=== PATIENT | female | born 1970 | race Caucasian/White ===

== ENCOUNTER 2019-11-28 15:38 | Outpatient (CLI) | payer OTHER, SELFPAY ==
--- NOTE | ~2019-11-28 | MM_ITS ---
EXAMINATION: MM screening sa[facility] BI w wanda HISTORY: Screening mammogram TECHNIQUE: Craniocaudal and mediolateral oblique 3-D tomosynthesis images were obtained and synthetic 2-D images were generated. CAD analysis was submitted and interpreted. COMPARISON: Comparison to multiple prior studies sequentially, with oldest reviewed study dated 08/17. BREAST PARENCHYMAL COMPOSITION: The breasts are heterogeneously dense, which may obscure small masses . FINDINGS: There is no evidence of suspicious mass, calcification, or architectural distortion to sugg est malignancy in either breast. There has been no suspicious interval change. IMPRESSION: 1. No mammographic evidence of malignancy. 2. Recommend routine screening mammography in one year. BI-RADS Category 1: Negative Reviewed, dictated and finalized at location A.
== END 2019-11-28 15:39 | disposition home or self-care (01) ==
PROVIDERS: PCP Family Medicine; Visit Provider Student in an Organized Health Care Education/Training Program
DX: Z12.31 Encounter for screening mammogram for malignant neoplasm of breast (principal)
CPT/HCPCS: 77063; 77067

== ENCOUNTER 2020-12-24 16:52 | Outpatient (CLI) | payer OTHER, SELFPAY ==
--- NOTE | ~2020-12-24 | MM_ITS ---
EXAMINATION: MM screening [facility] BI w wanda HISTORY: Screening mammogram TECHNIQUE: Craniocaudal and mediolateral oblique 3-D tomosynthesis images were obtained and synthetic 2-D images were generated. CAD analysis was submitted and interpreted. COMPARISON: 11/28/2019, 11/18/2018, 11/05/2017 BREAST PARENCHYMAL COMPOSITION: There are scattered areas of fibroglandular density. FINDINGS: There is no evidence of suspicious mass, calcification, or architectural distortion to sugg est malignancy in either breast. There has been no suspicious interval change. IMPRESSION: 1. No mammographic evidence of malignancy. 2. Recommend routine screening mammography in one year. BI-RADS Category 1: Negative Reviewed, dictated and finalized at location A.
== END 2020-12-24 16:53 | disposition home or self-care (01) ==
LOC: ANHIMG 16:54
PROVIDERS: PCP Family Medicine; Visit Provider Student in an Organized Health Care Education/Training Program
DX: Z12.31 Encounter for screening mammogram for malignant neoplasm of breast (principal)
CPT/HCPCS: 77063; 77067

== ENCOUNTER 2021-08-21 01:24 | Day surgery (SDC) | payer OTHER, SELFPAY ==
[2021-08-08 13:17] VITALS: BMI 21.5
--- NOTE | 2021-08-20 14:25 | PM.HPGS ---
History of Present Illness History of Present Illness Consent: Risks, benefits, and alternatives have been discussed and questions answered. Patient agrees to proceed with procedure. Chief complaint: neoplasm screening Narrative: Maggie Clarke is a 51 year old female referred for colon cancer screening. Review of Systems Review of Systems: All systems reviewed & are unremarkable except as noted in HPI and below PMFSH Past Medical History Medical History Acid reflux Acute otitis media (~05/30/04) Anxiety HSV (herpes simplex virus) infection Lipoma (~09/25/11) RUQ and right upper thigh Polyp of colon (~2011) Vaginal delivery x 2 Varicose vein of leg (~2011) Surgical History Surgical History History of vein stripping 2015 S/P excision of lipoma abdomen and right thigh - 2018 Social History Social History Smoking status: Never smoker Second hand tobacco smoke exposure: No Alcohol intake: current Alcohol use details: socially Substance use: never Substance use type: does not use Living arrangements: with family Gender identity (if verbalized by the patient): Female Spiritual care concerns: No Meds Home Medications and Allergies Home Medications Medication Instructions Recorded Confirmed Type evening primrose oil 500 mg capsule 500 mg PO 4-6XD 11/23/19 08/21/21 History dqqbkabe-ruleypnp-pgmxl acid 100 1 tablet PO DAILY 11/23/19 08/21/21 History mcg-caffeine 22.5 mg chewable tablet [place]y's wort 300 mg capsule 300 mg PO DAILY 01/01/20 08/21/21 History ascorbic acid 7.5 mg-vit E 7.5 1 tablet PO DAILY 12/26/20 08/21/21 History unit-biotin 1,250 mcg chewable tablet L norgest/E estradiol-E estrad 1 tablet PO DAILY tablet 04/07/21 08/21/21 History 0.10 mg-20 mcg (84)/10 mcg(7) tabs,3mos Allergies Allergy/AdvReac Type Severity Reaction Status Date / Time No Known Allergies Allergy Verified 08/21/21 06:44 Exam Resp: Auscultation: clear to auscultation bilaterally Cardio: Rate: regular rate Rhythm: regular rhythm GI: GI Palp: Yes Soft to palpation and No Tenderness to palpation present (GI) Assessment and Plan Assessment and plan (1) Colon cancer screening: Code(s): Z12.11 - Encounter for screening for malignant neoplasm of colon Status: Acute Assessment and Plan: Colonoscopy with possible biopsy or polypectomy or cautery or injection of substances.
--- NOTE | 2021-08-20 14:52 | WPDANESEPPF ---
Anes - Initial Pre Proc Eval Procedure: Operation Date: 08/21/21 08:00 Proposed Procedures p Screening Colonoscopy - Emre He MD Date/Time: 08/20/21 14:52 Surgeon: Emre He MD Pre Op Diagnosis: neoplasm screening Patient Data Age: 51 Gender: F Height: 1.78 m Weight: 68.18 kg Allergies Allergy/AdvReac Type Severity Reaction Status Date / Time No Known Allergies Allergy Verified 08/21/21 06:44 Home Medications Medication Instructions Recorded Confirmed Type evening primrose oil 500 mg capsule 500 mg PO 4-6XD 11/23/19 08/21/21 History qzpxtouh-iamxxlmd-zoqve acid 100 1 tablet PO DAILY 11/23/19 08/21/21 History mcg-caffeine 22.5 mg chewable tablet [place]'s wort 300 mg capsule 300 mg PO DAILY 01/01/20 08/21/21 History ascorbic acid 7.5 mg-vit E 7.5 1 tablet PO DAILY 12/26/20 08/21/21 History unit-biotin 1,250 mcg chewable tablet L norgest/E estradiol-E estrad 1 tablet PO DAILY tablet 04/07/21 08/21/21 History 0.10 mg-20 mcg (84)/10 mcg(7) tabs,3mos Patient hx anesthesia problems: none Family hx anesthesia problems: none Results Review: All pre-operative results and documents have been reviewed as part of the pre-operative evaluation. [facility] Past Medical History Medical History Acid reflux Acute otitis media (~05/30/04) Anxiety HSV (herpes simplex virus) infection Lipoma (~09/25/11) RUQ and right upper thigh Polyp of colon (~2011) Vaginal delivery x 2 Varicose vein of leg (~2011) Surgical History Surgical History History of vein stripping 2015 S/P excision of lipoma abdomen and right thigh - 2018 Social History Social History Smoking status: Never smoker Second hand tobacco smoke exposure: No Alcohol intake: current Alcohol use details: socially Substance use: never Substance use type: does not use Living arrangements: with family Gender identity (if verbalized by the patient): Female Spiritual care concerns: No Anes - Eval Final PreProcedure Day of Procedure 08/20/21 14:52 Patient weight: normal Heart: regular rate and rhythm Lungs: clear to auscultation and normal air movement Airway: Mallampati scale Neurological: alert and oriented Last oral intake: >/= 8 hours ASA classification: II Emergent: no Anesthetic plan: proceed Anesthesia type and monitoring: general GIVS and standard monitoring Results Review: All pre-operative results and documents have been reviewed as part of the pre-operative evaluation. Informed Consent: The patient's anesthetic plan and its attendant risks and benefits were discussed with the patient/family/POA. Questions were solicited and answers provided to the satisfaction of the patient/family/POA.
[2021-08-21 06:47] VITALS: BP 121/71; PULSE 79; RESP 17; TEMP 36.9; O2SAT 100; BMI 21.5
[2021-08-21] MEDS: LACTATED RINGERS 1,000 ML 150 ML IV CONT (06:50)
[2021-08-21 08:20] VITALS: BP 81/47; PULSE 79; RESP 21; O2SAT 100
[2021-08-21 08:30] VITALS: BP 90/56; PULSE 81; RESP 21; O2SAT 100
[2021-08-21 08:40] VITALS: BP 121/67; PULSE 66; RESP 20; O2SAT 100
== END 2021-08-21 08:44 | disposition home or self-care (01) ==
PROVIDERS: PCP Family Medicine; Visit Provider Internal Medicine Gastroenterology
PROC: 0DJD8ZZ Inspection of Lower Intestinal Tract, Via Natural or Artificial Opening Endoscopic (ICD-10-PCS; CPT 45378; principal; 2021-08-21 08:00)
DX: Z12.11 Encounter for screening for malignant neoplasm of colon (principal); F41.9 Anxiety disorder, unspecified; K21.9 Gastro-esophageal reflux disease without esophagitis
CPT/HCPCS: 45378; J2704; J7120

== ENCOUNTER 2022-04-14 14:45 | Outpatient (CLI) | payer OTHER, SELFPAY ==
--- NOTE | ~2022-04-14 | MM_ITS ---
EXAMINATION: MM screening sa[facility] BI w wanda HISTORY: Screening mammogram TECHNIQUE: Craniocaudal and mediolateral oblique 3-D tomosynthesis images were obtained and synthetic 2-D images were generated. CAD analysis was submitted and interpreted. COMPARISON: 12/24/2020, 11/28/2019, 11/18/2018 BREAST PARENCHYMAL COMPOSITION: The breasts are heterogeneously dense, which may obscure small masses . FINDINGS: RIGHT BREAST: No suspicious mass, calcification, or architectural distortion are identified to sugges t malignancy. There has been no suspicious interval change. LEFT BREAST: There is a possible mass in the posterior third of the lower-outer breast. IMPRESSION: 1. Possible left breast mass. 2. Additional mammographic views and possible breast ultrasound are recommended. BI-RADS Category 0: Incomplete: Needs additional imaging evaluation. Reviewed, dictated and finalized at location A. IMPRESSION: 1. Possible left breast mass. 2. Additional mammographic views and possible breast ultrasound are recommended . BI-RADS Category 0: Incomplete: Needs additional imaging evaluation.
== END 2022-04-14 14:46 | disposition home or self-care (01) ==
PROVIDERS: PCP Family Medicine; Visit Provider Student in an Organized Health Care Education/Training Program
DX: Z12.31 Encounter for screening mammogram for malignant neoplasm of breast (principal); R92.8 Other abnormal and inconclusive findings on diagnostic imaging of breast
CPT/HCPCS: 77063; 77067

== ENCOUNTER 2022-04-28 13:53 | Outpatient (CLI) | payer OTHER, SELFPAY ==
--- NOTE | ~2022-04-28 | MMUS_ITS ---
Scans (1 status post thank you EXAMINATION: MM diagnostic sahil LT w wanda, US breast LT complete HISTORY: Possible mass in posterior third of lower outer left breast reported on 04/14/2022 screening mammogram examination TECHNIQUE: Additional 3-D tomosynthesis images of the left breast were performed and synthetic 2-D im ages were generated. Magnification views of left breast in MLO and CC projections. CAD analysis was s ubmitted and interpreted. High resolution complete left breast ultrasound including all 4 quadrants a nd subareolar area was performed. COMPARISON: None FINDINGS: MAMMOGRAPHIC FINDINGS: Occasional subtle pinpoint benign-appearing microcalcifications are noted. No suspicious mass or architectural distortion, malignant calcification, skin thickening or retractio n is detected. ULTRASOUND: Left breast 4:00 7 cm from nipple: 6.4 x 3.8 x 5.1 mm sonolucency without internal vascularity, with through transmission, consistent with simple cyst No suspicious mass or shadowing of the left breast is detected. IMPRESSION: 1. Benign finding 2. Routine annual mammographic screening is recommended. BI-RADS Category 2: Benign finding(s). Reviewed, dictated and finalized at location A. BUFFER IMPRESSION: 1. Benign finding 2. Routine annual mammographic screening is recommended. BI-RADS Category 2: Benign finding(s).
== END 2022-04-28 13:54 | disposition home or self-care (01) ==
PROVIDERS: PCP Family Medicine; Visit Provider Student in an Organized Health Care Education/Training Program
DX: R92.8 Other abnormal and inconclusive findings on diagnostic imaging of breast (principal)
CPT/HCPCS: 76641; 77061; 77065; G0279

== ENCOUNTER 2022-05-28 08:03 | Outpatient (CLI) | payer OTHER, SELFPAY ==
[2022-05-28 19:21] LABS: Basophils Absolute Auto 0.1 K/mm3 (0.0-0.1); Basophils Percent Auto 0.9 % (0.2-1.2); Eosinophils Absolute Auto 0.1 K/mm3 (0-0.3); Eosinophils Percent Auto 0.9 % (0-4.4); Hematocrit 40.9 % (37.0-47.0); Hemoglobin 13.3 g/dL (12.0-15.0); Immature Granulocyte Absolute 0.01 K/mm3 (0.00-0.031); Immature Granulocyte Percent A 0.2 % (0-0.5); Lymphocytes Absolute Auto 1.88 K/mm3 (0.9-3.2); Lymphocytes Percent Auto 34.5 % (18.3-44.2); Mean Corpuscular HGB Conc 32.5 g/dl (32-36); Mean Corpuscular Hemoglobin 31.7 pg (26-34); Mean Corpuscular Volume 97.6 fl (80-100); Mean Platelet Volume 9.8 fl (7.4-10.4); Monocytes Absolute Auto 0.6 K/mm3 (0.1-0.6); Monocytes Percent Auto 10.3 % (2.6-8.5); Neutrophils Absolute Auto 2.9 K/mm3 (1.3-6.7); Neutrophils Percent Auto 53.2 % (45.5-73.1); Platelet Count Result 330 k/mm3 (150-375); Red Blood Count 4.19 M/mm3 (4.2-5.4); Red Cell Distribution Width 12.3 % (11.5-14.5); White Blood Count 5.5 K/mm3 (4.5-10.0)
[2022-05-28 19:52] LABS: Alanine Aminotransferase 17 U/L (6-35); Albumin Level 4.2 g/dL (3.5-5.1); Alkaline Phosphatase 69 U/L (38-126); Anion Gap 6 mmol/L (8-16); Aspartate Amino Transferase 40 U/L (14-36); Bilirubin,Total 0.4 mg/dL (0.2-1.3); Blood Urea Nitrogen 13 mg/dL (7-17); Calcium 8.6 mg/dL (8.4-10.2); Carbon Dioxide 29 mmol/L (22-30); Chloride 104 mmol/L (98-107); Cholesterol 212 mg/dL (0-200); Estimated Glomerular Filt Rate > 60; Glucose 69 mg/dL (65-110); HDL Direct 70 mg/dL; Potassium 4.1 mmol/L (3.4-5.0); Sodium 139 mmol/L (137-145); Triglycerides 101 mg/dL (<150)
[2022-05-28 20:04] LABS: LDL Cholesterol Direct 104 mg/dL
[2022-05-28 21:38] LABS: Vitamin D 25 Hydroxy 52.4 ng/mL
== END 2022-05-28 08:04 | disposition home or self-care (01) ==
LOC: ANHGOSHLAB 08:06
PROVIDERS: PCP Family Medicine; Visit Provider Family Medicine
DX: R00.2 Palpitations (principal); E55.9 Vitamin D deficiency, unspecified; Z79.899 Other long term (current) drug therapy; Z00.00 Encounter for general adult medical examination without abnormal findings; E78.5 Hyperlipidemia, unspecified; E53.8 Deficiency of other specified B group vitamins
CPT/HCPCS: 36415; 80053; 80061; 82306; 82607; 84443; 85025

== ENCOUNTER 2022-12-10 08:19 | Outpatient (CLI) | payer OTHER, SELFPAY ==
[2022-12-16 06:18] LABS: Prolactin 8.1 ng/mL (***)
== END 2022-12-10 08:20 | disposition home or self-care (01) ==
PROVIDERS: PCP Family Medicine; Visit Provider Registered Nurse
DX: N64.4 Mastodynia (principal)
CPT/HCPCS: 36415; 84146

== ENCOUNTER 2023-01-08 12:16 | Outpatient (CLI) | payer OTHER, SELFPAY ==
--- NOTE | ~2023-01-08 | MMUS_ITS ---
EXAMINATION: MM diagnostic sahil BI w wanda, US breast BI complete HISTORY: Breast pain TECHNIQUE: Additional 3-D tomosynthesis images of the breasts were performed and synthetic 2-D images were generated. CAD analysis was submitted and interpreted. High resolution complete bilateral breas t ultrasound was performed. COMPARISON: Comparison to multiple prior studies sequentially, with oldest reviewed study dated 11/05. BREAST PARENCHYMAL COMPOSITION: The breasts are heterogeneously dense, which may obscure small masses FINDINGS: MAMMOGRAPHIC FINDINGS: Stable bilateral breasts without discrete mass, suspicious calcifications or architectural distortion to suggest malignancy. ULTRASOUND: Complete bilateral US of all 4 quadrants of the breasts and retroareolar region was reviewed. Normal heterogeneous echotexture throughout both breasts without discrete mass. IMPRESSION: 1. No evidence for malignancy in either breast. 2. Routine yearly screening mammogram and regular clinical breast examination are recommended. BI-RADS Category 1: Negative Reviewed, dictated and finalized at location A. IMPRESSION: 1. No evidence for malignancy in either breast. 2. Routine yearly screening mammogram and regular clinical breast examination a re recommended. BI-RADS Category 1: Negative
== END 2023-01-08 12:17 | disposition home or self-care (01) ==
LOC: ANHIMG 12:18
PROVIDERS: PCP Family Medicine; Visit Provider Registered Nurse
DX: N64.4 Mastodynia (principal)
CPT/HCPCS: 76641; 77062; 77066; G0279

== ENCOUNTER 2024-05-04 16:05 | Outpatient (CLI) | payer OTHER, SELFPAY ==
--- NOTE | ~2024-05-04 | MM_ITS ---
EXAMINATION: MM screening sahil BI w wanda HISTORY: Screening mammogram TECHNIQUE: Craniocaudal and mediolateral oblique 3-D tomosynthesis images were obtained and synthetic 2-D images were generated. CAD analysis was submitted and interpreted. COMPARISON: 01/08/2023, 04/14/2022, 12/24/2020, 11/28/2019 BREAST PARENCHYMAL COMPOSITION:Dense: The breasts are heterogeneously dense, which may obscure small masses. FINDINGS: There is a new loose grouping of microcalcifications the outer, posterior left breast. No s uspicious microcalcifications in the right breast. No mass lesion or distortion seen in either breast . IMPRESSION: New microcalcifications at the outer, posterior left breast. Spot magnification views are recommended for further evaluation. BI-RADS Category 0: Incomplete: Needs additional imaging evaluation. Reviewed, dictated and finalized at [facility]. ERTY APPRAISER
== END 2024-05-04 16:06 | disposition home or self-care (01) ==
LOC: ANHIMG 16:07
PROVIDERS: PCP Family Medicine; Visit Provider Obstetrics & Gynecology
DX: Z12.31 Encounter for screening mammogram for malignant neoplasm of breast (principal); R92.0 Mammographic microcalcification found on diagnostic imaging of breast
CPT/HCPCS: 77063; 77067

== ENCOUNTER 2024-05-24 10:23 | Outpatient (CLI) | payer OTHER, SELFPAY ==
--- NOTE | ~2024-05-24 | MM_ITS ---
EXAMINATION: MM diagnostic sahil LT w wanda HISTORY: Follow-up left breast calcifications TECHNIQUE: Additional 3-D tomosynthesis images of the left breast were performed and synthetic 2-D im ages were generated. CAD analysis was submitted and interpreted. COMPARISON: 05/04/2024. BREAST PARENCHYMAL COMPOSITION: Dense: The breasts are heterogeneously dense, which may obscure small masses FINDINGS: There are 2 clusters of indeterminate calcifications in the upper outer and lower outer juventino drants of the left breast. There are no suspicious masses or architectural distortion. IMPRESSION: 1. Indeterminate clustered groups of calcification in the upper outer and lower-outer quadrants of th e left breast posterior third. 2. Stereotactic left breast biopsies recommended. BI-RADS category 4, suspicious findings. Reviewed, dictated and finalized at location B. [employer] IMPRESSION: 1. Indeterminate clustered groups of calcification in the upper outer and lower -outer quadrants of the left breast posterior third. 2. Stereotactic left breast biopsies recommended. BI-RADS category 4, suspicious findings.
== END 2024-05-24 10:24 | disposition home or self-care (01) ==
LOC: ANHIMG 10:24
PROVIDERS: PCP Family Medicine; Visit Provider Nurse Practitioner Obstetrics & Gynecology
DX: R92.8 Other abnormal and inconclusive findings on diagnostic imaging of breast (principal)
CPT/HCPCS: 77061; 77065; G0279